=== PATIENT | female | born 1935 | race Caucasian/White ===

== ENCOUNTER 2021-07-23 12:51 | Emergency (ER) | payer MEDICARE, BC ==
[~2021-07-23] VITALS: Ht 152.4 cm; Wt 71.2 kg
[2021-07-23] MEDS ORDERED: MAPAP500 MG PO (13:03)
[2021-07-23] MEDS ORDERED: ASA81BEC PO (13:03)
[2021-07-23] MEDS ORDERED: NORVASC 2.5 MG2.5 M1 PO (13:03)
[2021-07-23] MEDS ORDERED: CARBAMAZEPINE100 MG PO (13:05)
[2021-07-23] MEDS ORDERED: GLIMEPIRIDE1 MG PO (13:06)
[2021-07-23] MEDS ORDERED: CARVEDILOL12.5 MG PO (13:06)
[2021-07-23] MEDS ORDERED: JANUVIA100 MG PO (13:06)
[2021-07-23] MEDS ORDERED: BENTYL 10 MG CA10 MG PO (13:06)
[2021-07-23] MEDS ORDERED: DRIZALMA SPRINK60 MG PO (13:06)
[2021-07-23] MEDS ORDERED: OMEPRAZOLE40 MG PO (13:07)
[2021-07-23] MEDS ORDERED: ROSUVASTATIN CA10 MG PO (13:07)
[2021-07-23] MEDS ORDERED: SEROQUEL 25 MG25 MG PO (13:07)
[2021-07-23] MEDS ORDERED: TRAMADOL 50 MG50 MG PO (13:07)
[2021-07-23] MEDS ORDERED: ACTOS 30 MG TAB30 M1 PO (13:07)
[2021-07-23] MEDS ORDERED: PROLIA60 MG/1 ML SUBQ (13:08)
[2021-07-23] MEDS ORDERED: VALACYCLOVIR1000 MG PO (13:08)
[2021-07-23 15:21] LABS: ABSOLUTE BASOPHILS 0.1 thou/uL (0.0-0.2); ABSOLUTE EOSINOPHILS 0.1 thou/uL (0.0-0.7); ABSOLUTE LYMPHOCYTES 1.1 thou/uL (0.8-5.3); ABSOLUTE MONOCYTES 0.6 thou/uL (0.0-1.2); ABSOLUTE NEUTROPHILS 5.4 thou/uL (1.6-8.1); EOSINOPHILS 1.6 %; HEMATOCRIT 37.9 % (37.0-47.0); HEMOGLOBIN 12.8 gm/dL (12.0-15.0); LYMPHOCYTES 15.1 %; MCH 28.9 pg (26.0-34.0); MCHC 33.8 g/dL (28.0-37.0); MCV 85.4 fL (80.0-100.0); MONOCYTES 8.4 %; MPV 6.6 fl. (7.2-11.1); NUCLEATED RBCS 0 /100WBC; PLATELET COUNT* 231 thou/uL (150-400); POLYS 73.9 %; RBC 4.43 mil/uL (4.20-5.00); RDW-CV 15.5 % (10.5-14.5); WBC 7.3 thou/uL (4.0-11.0)
[2021-07-23 15:29] LABS: CALCIUM 9.3 mg/dL (8.5-10.1); CREATININE 0.8 mg/dL (0.6-1.3); POTASSIUM 4.7 mmol/L (3.5-5.1)
[2021-07-23 15:33] LABS: ALBUMIN 3.8 g/dL (3.4-5.0); APTT 26.3 Seconds (25.0-31.3); PROTIME 10.9 Seconds (9.20-11.50); TOTAL BILIRUBIN 0.3 mg/dL (<0.1-1.0); TOTAL PROTEIN 7.3 g/dL (6.4-8.2)
[2021-07-23] MEDS ORDERED: NORCO5 PO (18:46)
[2021-07-23 19:15] VITALS: BP 135/98
== END 2021-07-23 19:15 | disposition home or self-care (01) ==
LOC: M.ERS 12:51
PROVIDERS: Physician Assistant
DX: S82.001A Unspecified fracture of right patella, initial encounter for closed fracture (principal); S00.12XA Contusion of left eyelid and periocular area, initial encounter; M25.00 Hemarthrosis, unspecified joint; E11.9 Type 2 diabetes mellitus without complications; I10 Essential (primary) hypertension; Z98.890 Other specified postprocedural states; Z79.899 Other long term (current) drug therapy; Z79.82 Long term (current) use of aspirin; W19.XXXA Unspecified fall, initial encounter; Y93.89 Activity, other specified; Y92.89 Other specified places as the place of occurrence of the external cause; Y99.8 Other external cause status